=== PATIENT | female | born 1930 | race Caucasian/White ===

== ENCOUNTER 2016-08-26 09:05 | Outpatient (CLI) | payer OTHER | END 2016-08-26 19:40 | disposition home or self-care (01) | LOC: SMA 09:05 | PROVIDERS: ATTEND Physician Assistant Medical | DX: Z12.31 Encounter for screening mammogram for malignant neoplasm of breast (principal) | CPT/HCPCS: 77067; G0202 ==

== ENCOUNTER 2016-08-30 09:30 | Outpatient (CLI) | payer OTHER | END 2016-08-30 18:25 | disposition home or self-care (01) | LOC: SUS 09:30 | PROVIDERS: ATTEND Family Medicine | DX: N63 Unspecified lump in breast (principal) | CPT/HCPCS: 76641; 77051; G0204; G0206 ==